=== PATIENT | female | born 1965 | race Caucasian/White ===

== ENCOUNTER 2023-06-03 17:40 | Emergency (ER) | payer SELFPAY ==
[2023-06-03 18:08] VITALS: BP 180/89; PULSE 77; RESP 15; TEMP 98.2; BMI 28.3
[2023-06-03] MEDS ORDERED: SODIUM CHLORIDE 0.9% 1000 ML INFUS.BAG IV ONE (19:45)
[2023-06-03] MEDS ORDERED: METOCLOPRAMIDE HCL INJECTION 10 MG/2 ML VIAL IVPUSH ONE (19:45)
[2023-06-03] MEDS ORDERED: ACETAMINOPHEN 1000 MG/100 ML BAG IVPB ONE (20:02)
[2023-06-03] MEDS ORDERED: METOCLOPRAMIDE HCL INJECTION 10 MG/2 ML VIAL ONE (20:12)
[2023-06-03] MEDS ORDERED: ACETAMINOPHEN INJECTION 100 ML IVPB ONE (20:20)
[2023-06-03 20:25] LABS: HEMATOCRIT 39.5 % (32.4-45.2); HEMOGLOBIN 13.3 G/dL (10.7-15.3); MCH 27.9 pg (25.7-33.7); MCHC 33.7 g/dl (32.0-36.0); MEAN CELL VOLUME 82.8 fl (80-96); MEAN PLT VOLUME 8.4 fl (7.5-11.1); PLATELET COUNT 247.9 10^3/uL (134-434); RBC 4.77 10^6/uL (3.60-5.2); RDW 15.9 % (11.6-15.6); WHITE BLOOD COUNT 8.6 10^3/uL (4.0-10.8)
[2023-06-03 20:34] LABS: PLATELET ESTIMATE ADEQUATE
[2023-06-03 20:45] LABS: ALBUMIN 4.2 g/dl (3.4-5.0); BILIRUBIN,TOTAL 0.6 mg/dl (0.2-1); BLOOD UREA NITROGEN 17.7 mg/dl (7-18); CALCIUM 9.5 mg/dl (8.5-10.1); CREATININE 0.7 mg/dl (0.6-1.3); POTASSIUM 3.2 mmol/L (3.5-5.1); SGOT/AST 17.4 U/L (15-37); SGPT/ALT 17.3 U/L (7-52); TOT PROT 6.8 g/dl (6.4-8.2)
[2023-06-03] MEDS ORDERED: POTASSIUM CHLORIDE TABS 20 MEQ TABLET.ER (FP) PO ONE ×2 (21:15→21:16)
== END 2023-06-03 21:58 | disposition home or self-care (01) ==
LOC: FER 17:40
PROC: 3E033NZ Introduction of Analgesics, Hypnotics, Sedatives into Peripheral Vein, Percutaneous Approach (ICD-10-PCS; principal; 2023-06-03)
PROC: 3E033GC Introduction of Other Therapeutic Substance into Peripheral Vein, Percutaneous Approach (ICD-10-PCS; 2023-06-03)
DX: R51.9 Headache, unspecified (principal); H53.9 Unspecified visual disturbance; H43.391 Other vitreous opacities, right eye
CPT/HCPCS: 36415; 70450-TC; 76512; 80053; 85027; 85651; 99284-25